=== PATIENT | male | born 1985 | race Caucasian/White ===

== ENCOUNTER 2016-03-12 15:30 | Outpatient (CLI) | payer MEDICARE ==
--- OUTSIDE RECORDS SUMMARY | 2016-03-11 05:50 | XMS REPORT ---
Author Author RITA GREEN [facility] [place] eClinicalWorks Address Unknown Phone Unavailable Care Team Providers Care Machinery Mover Name Role Phone RITA GREEN CP Unavailable Allergies No Known Allergies Problems Problem Type Condition Code Onset Dates Condition Status Problem Acute bronchitis 466.0 Active Problem Encounter to establish care Z76.89 Active Problem Cough R05 Active Problem Prediabetes R73.09 Active Problem Deaf, bilateral H91.93 Active Problem Eye exam normal Z01.00 Active Problem Dysuria R30.0 Active Problem Morbid obesity, unspecified obesity type E66.01 Active Medications No Known Medications Results No Known Results Summary Purpose eClinicalWorks Submission
[~2016-03-12] VITALS: Ht 172.7 cm; Wt 144.2 kg
[2016-03-12] MEDS ORDERED: METF500T4 PO (15:32)
[2016-03-12] MEDS ORDERED: MONT10TA21 PO (15:32)
== END 2016-03-12 15:43 ==
LOC: PREOP 15:30
PROVIDERS: ATTEND Surgery
DX: Z01.818 Encounter for other preprocedural examination (principal); M67.432 Ganglion, left wrist

== ENCOUNTER 2016-03-14 07:52 | Day surgery (SDC) | payer MEDICARE ==
[~2016-03-14] VITALS: Ht 172.7 cm; Wt 144.2 kg
--- NOTE | 2016-03-14 07:42 | Progress Note-Pre Operative ---
Pre-Operative Progress Note H&P Reviewed The H&P was reviewed, patient examined and no changes noted. Date H&P Reviewed: Mar 14, 2016 Time H&P Reviewed: 07:42 Pre-Operative Diagnosis: Ganglion cyst-Left wrist YOLANDA CHASE MD Mar 14, 2016 7:42 am
[~2016-03-14 07:52] MED LIST: METF500T4 PO; MONT10TA21 PO
[2016-03-14] MEDS ORDERED: proPOfol 200 MG/20 ML (DIPRIVAN) VIAL IV ONE (08:14)
[2016-03-14] MEDS ORDERED: LIDOCAINE PF 0.5% 50 ML (XYLOCAINE) VIAL ONE (08:14)
[2016-03-14] MEDS ORDERED: MIDAZOLAM 2 MG/2 ML (VERSED) VIAL ONE (08:14)
[2016-03-14] MEDS ORDERED: ceFAZolin 2 GM/NS 50 ML IV ONE (08:15)
[2016-03-14] MEDS ORDERED: LACTATED RINGERS 1,000 ML IV PRN (08:22)
[2016-03-14 08:29] VITALS: BP 131/83
[2016-03-14] MEDS ORDERED: PROMETHAZINE INJ 25 MG/ML (PHENERGAN) AMP IV PRN (08:30)
[2016-03-14] MEDS ORDERED: MIDAZOLAM 2 MG/2 ML (VERSED) VIAL IV ONE (08:30)
[2016-03-14] MEDS ORDERED: ONDANSETRON 4 MG/2 ML (SDV) Z0FRAN IV PRN (08:30)
[2016-03-14] MEDS ORDERED: fentaNYL INJECTION 250 MCG/5 ML AMP IV PRN (08:30)
[2016-03-14] MEDS ORDERED: morphine INJ 10 MG/ML 1ML (SYR OR VIAL) IV PRN (08:30)
[2016-03-14] MEDS ORDERED: BUP/EPI 0.25% 1:200,000 (MARCAINE) 30 ML VIAL ONE (08:39)
[2016-03-14] MEDS ORDERED: LACTATED RINGERS 1,000 ML IV ONE (09:56)
--- NOTE | 2016-03-14 09:59 | Progress Note-Post Operative ---
Post-Operative Progess Note Pre-Operative Diagnosis Ganglion cyst-Left wrist Post-Operative Diagnosis same Post-Op Procedure Note Date of Procedure: Mar 14, 2016 Name of Procedure: excision Anesthesia Type regional anesthesia Estimated blood loss (mL): minimal Specimen(s) collected ganglion cyst YOLANDA CHASE MD Mar 14, 2016 9:59 am
[2016-03-14] MEDS ORDERED: HYDR-3812 PO (10:00)
--- NOTE | 2016-03-14 10:00 | Discharge Inst-Simple/Standard ---
Discharge Inst-Standard Discharge Medications New, Converted or Re-Newed RX: RX on Chart Patient Instructions/Follow Up Plan of Care/Instructions/FU: dressings off in 48 hours. Left hand to be elevated for a week. Follow up in 3 weeks Activity as Tolerated: Yes Discharge Diet: No Restrictions YOLANDA CHASE MD Mar 14, 2016 10:00 am
[2016-03-14 10:30] VITALS: BP 131/87
[2016-03-14 11:00] VITALS: BP 116/78
[2016-03-14 11:20] VITALS: BP 116/78
--- NOTE | 2016-03-17 09:32 | OPERATIVE REPORT ---
PROCEDURE PHYSICIAN: YOLANDA CHASE DATE OF PROCEDURE: 03/14/2016 PREOPERATIVE DIAGNOSIS: Ganglion cyst, left wrist. POSTOPERATIVE DIAGNOSIS: Ganglion cyst, left wrist. OPERATION: Excision. SURGEON: Dr. Chase. ANESTHESIA: Regional anesthesia with Roberto block. BLOOD LOSS: Minimal. FLUIDS: 400 mL crystalloids. TYPE OF WOUND: Type I (clean wound). INDICATION FOR THE PROCEDURE: This gentleman presented with a symptomatic, 4 cm ganglion cyst involving the volar aspect of his left wrist. He was offered excision. Informed consent was obtained after reviewing the operative details and complications of hematoma, wound infection and recurrence of the cyst. DESCRIPTION OF PROCEDURE: He was placed supine on the operative table and our LOGISTICS ENGINEER achieved regional anesthesia using Roberto block. Tourniquet pressure was maintained at 250 mmHg. Left wrist was prepared and draped in the usual sterile manner. A 4 cm incision was made and the cyst excised intact. Hemostasis was achieved using Ligaclips and the incision closed using 3-0 Vicryl for the subcutaneous tissue and 4-0 Vicryl for skin, in a subcuticular fashion. He tolerated the procedure well and was taken back to the nursing area in a stable condition. [place], sponges, and instruments were correct at the end of the operation. Job ID: [id number] Dictated Date: 03/14/2016 09:56:39 Resident Services Supervisor Date: 03/17/2016 09:27:26 / josé miguel JUAREZ
== END 2016-03-14 11:20 | disposition home or self-care (01) ==
LOC: SDC 07:52
PROVIDERS: ATTEND Surgery
DX: M67.432 Ganglion, left wrist (principal); E11.9 Type 2 diabetes mellitus without complications; Z79.84 Long term (current) use of oral hypoglycemic drugs
CPT/HCPCS: 82962; 87081; 88304

== ENCOUNTER → 2016-11-07 | Outpatient (CLI) | payer MEDICARE ==
[~2016-11-07] MED LIST changes: +HYDR-3812 PO
--- NOTE | 2016-11-07 17:56 | Diagnostic Imaging Report ---
INDICATION: Posterior head pain. FINDINGS: Three views show no evidence of calvarial fractures. There are no destructive bony changes. The mastoid air cells and paranasal sinuses appear well aerated. IMPRESSION: Normal skull series. Dictated by: Dictated on workstation # [id number]
== END ==
LOC: RAD 15:47
PROVIDERS: ATTEND Nurse Practitioner Community Health
DX: R51 Headache (principal); Z98.2 Presence of cerebrospinal fluid drainage device
CPT/HCPCS: 70250